=== PATIENT | female | born 1950 | race Two or more races ===

== ENCOUNTER 2016-06-03 15:15 | Emergency (ER) | payer OTHER ==
[2016-06-03] MEDS ORDERED: IOPAMIDOL 370 (76%) 100 ML VIAL IV ONE (15:16)
[2016-06-03 16:23] LABS: ABSOLUTE NEUTROPHIL COUNT 7.9 K/mm3 (1.8-7.7); BASO % 0.3 % (0.2-1.0); EOS # 0.1 (0.0-0.5); EOS % 0.8 % (0.9-2.9); HEMATOCRIT 41.1 % (37.0-47.0); HEMOGLOBIN 13.8 gm/l (12.0-16.0); IMM NEUT% 0.3 % (0-1); LYMPH # 2.4 (1.0-4.8); LYMPH % 20.2 % (15-45); MEAN CORPUSCULAR HEMOGLOBIN 28.9 pg (27.0-31.0); MEAN CORPUSCULAR HGB CONC 33.6 g/dl (33.0-37.0); MEAN PLATELET VOLUME 9.8 fl (7.4-10.4); MONO # 1.2 (0.0-0.8); MONO % 10.6 % (4-12); NEUT % 67.8 % (43-75); PLATELET COUNT 220 K/mm3 (130-400); RED CELL DISTRIBUTION WIDTH 12.2 % (11.5-14.5)
[2016-06-03 16:38] LABS: CALCIUM 9.5 mg/dL (8.6-10.3)
[2016-06-03] MEDS ORDERED: KETOROLAC TROMETHAMINE 15 MG/ML VIAL ONE (16:47)
[2016-06-03] MEDS ORDERED: ACETAMINOPHEN 325 MG TABLET ONE (16:47)
[2016-06-03] MEDS ORDERED: LACTATED RINGERS 1,000 ML ONE (16:48)
--- NOTE | 2016-06-04 07:39 | CT ---
LOWER EXT W/ CON LT History: Mass at the level of the left greater trochanter. No trauma. Comparison: None. Procedure: 1 mm axial images were obtained through the left hip following the administration of 100cc's of Isovue-370 intravenous contrast. Stacked reconstructed 3 mm images were then photographed in the axial, coronal and sagittal planes. Findings: Images demonstrate evidence of a vague soft tissue masslike structure along the posterior lateral aspect of the proximal left femur. This appears to extend from the level of the posterior femoral cortical margin along the posterior aspect of the vastus lateralis and into the superficial subcutaneous tissues. The structure measures approximately 2.2 x 3.9 cm in size with some associated dystrophic calcification. There is also smooth suggested periosteal reaction along the posterior surface of the femur. Some infiltration of the adjacent subcutaneous fatty tissues is also visualized. No acute fracture is visualized. Incidental note is made of a fat filled left inguinal hernia. Impression: 1. A partially calcified soft tissue mass along the posterior lateral aspect of the proximal of the proximal left femoral diaphysis with associated smooth cortical thickening as well as dystrophic calcification and infiltration of the overlying subcutaneous tissues. Considerations would include a partially calcified neoplastic process or possibly chronic injury or trauma to this location. No acute injury/fracture is visualized. 2. A fat filled left inguinal hernia. The findings were called to the emergency room by Dr. Yates at 1740 hours.
== END 2016-06-03 19:20 | disposition home or self-care (01) ==
LOC: EDBD → ED 15:15
DX: R22.42 Localized swelling, mass and lump, left lower limb (principal); E11.65 Type 2 diabetes mellitus with hyperglycemia
CPT/HCPCS: 85025; 80048; 73701; 99284 ×2; 96374; 96361; J1885; A9270; J7120; Q9967

== ENCOUNTER 2016-07-20 15:41 | Outpatient (CLI) | payer OTHER | END 2016-07-20 15:42 | disposition home or self-care (01) | LOC: NC 15:41 | PROVIDERS: ATTEND Legal Medicine | DX: E11.65 Type 2 diabetes mellitus with hyperglycemia (principal); Z71.3 Dietary counseling and surveillance; Z79.84 Long term (current) use of oral hypoglycemic drugs ==